=== PATIENT | female | born 1990 | race Caucasian/White ===

== ENCOUNTER 2016-12-08 02:24 | Emergency (ER) | payer OTHER ==
[2016-12-08] MEDS ORDERED: NS 0.9% 1000 ML* 1,000 ML IV ONE (02:46)
[2016-12-08] MEDS ORDERED: Ondansetron INJ* 2 MG/ML VIAL IV ONE (02:46)
[2016-12-08 03:14] LABS: Hematocrit 42 % (35-47); Hemoglobin 13.9 g/dl (12.0-16.0); Mean Corpuscular HGB Conc 34 g/dl (31-36); Mean Corpuscular Hemoglobin 28 pg (27-31); Mean Corpuscular Volume 84 fL (80-97); Mean Platelet Volume 8 um3 (7.4-10.4); Red Blood Count 4.97 10^6/ul (4.0-5.4); Red Cell Distribution Width 13 % (10.5-15); White Blood Count 15.3 10^3/ul (3.5-10.8)
[2016-12-08 03:19] LABS: Urine Bacteria 1+ (Absent); Urine Bilirubin Negative (Negative); Urine Glucose Negative (Negative); Urine Nitrite Negative (Negative)
[2016-12-08 03:32] LABS: ALT 11 U/L (7-52); AST 14 U/L (13-39); Albumin 4.2 g/dL (3.2-5.2); Alkaline Phosphatase 82 U/L (34-104); Anion Gap 9 mmol/L (2-11); Blood Urea Nitrogen 12 mg/dL (6-24); C Reactive Protein 20.84 mg/L (< 5.00); CO2 Carbon Dioxide 23 mmol/L (22-32); Calcium 9.2 mg/dL (8.6-10.3); Chloride 104 mmol/L (101-111); EGFR African American 118.3 (>60); Globulin 3.5 g/dL (2-4); Glucose 147 mg/dL (70-100); Lipase 26 U/L (11.0-82.0); Potassium 3.7 mmol/L (3.5-5.0); Sodium 136 mmol/L (133-145); Total Protein 7.7 g/dL (6.4-8.9)
[2016-12-08] MEDS ORDERED: Iohexol 300* (CONTRAST) 10 ML SDV IV ONE (06:04)
--- NOTE | 2016-12-08 06:13 | ED ---
laquita English Timothy, scribed for Markie Urrutia MD on 12/08/16 at 0243 . Abdominal Pain/Female - HPI Summary HPI Summary: Kiera Chanel is a 26 yo female presenting to [facility] with 4/10 lower abd and back pain since 0800 12/07/16 worsening through today, and worse when she lays down. She states her abd feels bloated, and she has sharp pains in her pelvic area. She states it feels like she need to have a BM, but has moved them several times today, and was voiding frequently yesterday. 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 Her Mx includes A0, bipolar disorder, depression, anxiety. - History of Current Complaint Chief Complaint: EDAbdPain Stated Complaint: ABD PAIN Time Seen by Provider: 12/08/16 02:43 Hx Obtained From: Patient Hx Last Menstrual Period: 04/17/16 ?: No Onset/Duration: Sudden Onset, Lasting Hours, Still Present, Worse Since - now Timing: Constant Severity Initially: Moderate Severity Currently: Moderate Pain Intensity: 4 Pain Scale Used: 0-10 Numeric Location: Suprapubic, Other - pelvis Radiates: No Character: Sharp - pelvic Aggravating Factor(s): Other: - laying down Alleviating Factor(s): Nothing Associated Signs and Symptoms: Positive: Back Pain, Other: - feeling of BM, bloating, voiding frequently Allergies/Adverse Reactions: Allergies Allergy/AdvReac Type Severity Reaction Status Date / Time No Known Allergies Allergy Verified 12/08/16 02:31 PMH/Surg Hx/FS Hx/Imm Hx Endocrine/Hematology History: Denies: Hx Diabetes, Hx Thyroid Disease Cardiovascular History: Denies: Hx Hypertension Respiratory History: Denies: Hx Asthma, Hx Chronic Obstructive Pulmonary Disease (COPD) GI History: Denies: Hx Ulcer History: Reports: Other Problems/Disorders - - vaginal delivery 06/11 Psychiatric History: Reports: Hx Anxiety - as reported by MOM's RN, Hx Depression - On Zoloft 50 mg. daily Comment Only: Hx Bipolar Disorder - per pt report - Surgical History Surgery Procedure, Year, and Place: - fx repair left arm Infectious Disease History: No Infectious Disease History: Denies: Hx Clostridium Difficile, Hx Hepatitis, Hx Human Immunodeficiency Virus (HIV), Hx of Known/Suspected MRSA, Hx Shingles, Hx Tuberculosis, Traveled Outside the [place] in Last 30 Days - Family History Known Family History: Positive: Cardiac Disease, Hypertension, Diabetes - Social History Alcohol Use: Rare Substance Use Type: Reports: None Substance Use Comment - Amount & Last Used: pt denies Smoking Status (MU): Never Smoked Tobacco Review of Systems Constitutional: Negative Eyes: Negative ENT: Negative Cardiovascular: Negative Respiratory: Negative Positive: Abdominal Pain, Nausea, Other - abd bloating, BM feeling, frequently voiding Genitourinary: Negative Musculoskeletal: Negative Skin: Negative Neurological: Negative Psychological: Normal All Other Systems Reviewed And Are Negative: Yes Physical Exam Triage Information Reviewed: Yes Vital Signs On Initial Exam: Initial Vitals Temp Pulse Resp BP Pulse Ox 98.4 F 121 15 151/71 98 12/08/16 02:27 12/08/16 02:27 12/08/16 02:27 12/08/16 02:27 12/08/16 02:27 Vital Signs Reviewed: Yes Appearance: Positive: Well-Appearing, No Pain Distress Skin: Positive: Warm Head/Face: Positive: Normal Head/Face Inspection Eyes: Positive: PRITESH ENT: Positive: Hearing grossly normal Neck: Positive: Supple Respiratory/Lung Sounds: Positive: Clear to Auscultation, Breath Sounds Present Cardiovascular: Positive: RRR Abdomen Description: Positive: Nontender, Soft Bowel Sounds: Positive: Present Musculoskeletal: Positive: Strength/ROM Intact Neurological: Positive: Alert, Oriented to Person Place, Time Psychiatric: Positive: Affect/Mood Appropriate Diagnostics - Vital Signs Vital Signs Temp Pulse Resp BP Pulse Ox 12/08/16 02:27 98.4 F 121 15 151/71 98 - Laboratory Lab Results: Lab Results 12/08/16 12/08/16 12/08/16 Range/Units 03:00 03:00 03:00 WBC 15.3 H (3.5-10.8) 10^3/ul RBC 4.97 (4.0-5.4) 10^6/ul Hgb 13.9 (12.0-16.0) g/dl Hct 42 (35-47) % MCV 84 (80-97) fL MCH 28 (27-31) pg MCHC 34 (31-36) g/dl RDW 13 (10.5-15) % Plt Count 317 (150-450) 10^3/ul MPV 8 (7.4-10.4) um3 Neut % (Auto) 87.7 H (38-83) % Lymph % (Auto) 7.9 L (25-47) % [place] % (Auto) 4.0 (1-9) % Eos % (Auto) 0.2 (0-6) % Baso % (Auto) 0.2 (0-2) % Absolute Neuts (auto) 13.5 H (1.5-7.7) 10^3/ul Absolute Lymphs (auto) 1.2 (1.0-4.8) 10^3/ul Absolute Monos (auto) 0.6 (0-0.8) 10^3/ul Absolute Eos (auto) 0 (0-0.6) 10^3/ul Absolute Basos (auto) 0 (0-0.2) 10^3/ul Absolute Nucleated RBC 0.01 10^3/ul Nucleated RBC % 0.1 Sodium 136 (133-145) mmol/L Potassium 3.7 (3.5-5.0) mmol/L Chloride 104 (101-111) mmol/L Carbon Dioxide 23 (22-32) mmol/L Anion Gap 9 (2-11) mmol/L BUN 12 (6-24) mg/dL Creatinine 0.75 (0.51-0.95) mg/dL Est GFR ( Amer) 118.3 (>60) Est GFR (Non-Af Amer) 92.0 (>60) BUN/Creatinine Ratio 16.0 (8-20) Glucose 147 H (70-100) mg/dL Calcium 9.2 (8.6-10.3) mg/dL Total Bilirubin 0.40 (0.2-1.0) mg/dL AST 14 (13-39) U/L ALT 11 (7-52) U/L Alkaline Phosphatase 82 (34-104) U/L C-Reactive Protein 20.84 H (< 5.00) mg/L Total Protein 7.7 (6.4-8.9) g/dL Albumin 4.2 (3.2-5.2) g/dL Globulin 3.5 (2-4) g/dL Albumin/Globulin Ratio 1.2 (1-3) Lipase 26 (11.0-82.0) U/L Beta HCG, Quant < 0.60 mIU/mL Urine Color Yellow Urine Appearance Cloudy Urine pH 6.0 (5-9) Ur Specific [place] 1.029 (1.010-1.030) Urine Protein 1+(30 mg/dl) H (Negative) Urine Ketones 1+ H (Negative) Urine Blood Negative (Negative) Urine Nitrate Negative (Negative) Urine Bilirubin Negative (Negative) Urine Urobilinogen Negative (Negative) Ur Leukocyte Esterase Trace H (Negative) Urine WBC (Auto) Trace(0-5/hpf) (Absent) Urine RBC (Auto) 1+(3-5/hpf) H (Absent) Ur Squamous Epith Cells Present H (Absent) Urine Bacteria 1+ H (Absent) Urine Glucose Negative (Negative) Result Diagrams: 12/08/16 03:00 12/08/16 03:00 Lab Statement: Any lab studies that have been ordered have been reviewed, and results considered in the medical decision making process. - CT A/P CT Interpretation: No Acute Changes - Impression: No evidence of acute pathology CT Interpretation Completed By: Radiologist - imaging gps navigation installer Re-Evaluation - Re-Evaluation First Eval Re-Evaluation Time: 06:37 Change: Improved Comment: Pt is informed of her imaging and lab study results, and is agreeable with the curent course of Tx. Abdominal Pain Fem Course/Dx - Course Course Of Treatment: Kiera Chanel is a 26 yo male presenting to [facility] with 4/10 lower abd and back pain since yesterday morning increasing through today, with a feeling of needing to have a BM and voiding frequently. In the ED she was given IV fluids and zofran for nausea control. Her CT A/P suggests no acute pathology. After clinical examination and review of her imaging and lab studies, she willbe discharged home with ??? - Diagnoses Differential Diagnosis: Positive: Other - abdominal pain Provider Diagnoses: Abdominal pain Discharge - Discharge Plan Condition: Stable Disposition: HOME Patient Education Materials: Acute Abdominal Pain (ED) Referrals: Derik Rodriguez NP [Primary Care Provider] - 2 Days Additional Instructions: Please follow up with your primary care physician regarding your visit to the emergency department today. Return to the emergency department with any new or recurring symptoms. The documentation as recorded by the laquita العلي Timothy accurately reflects the service I personally performed and the decisions made by me, Markie Urrutia MD.
[2016-12-08 07:02] VITALS: BP 124/78
--- NOTE | 2016-12-08 07:55 | RAD ---
INDICATION: Periumbilical pain. Constipation. COMPARISON: CT November 16, 2015 TECHNIQUE: Axial source images were obtained from the hemidiaphragms to the symphysis pubis following administration of oral and intravenous contrast. 121 mL Omnipaque 300 was utilized. Coronal and sagittal reconstructed images were acquired. Lung bases: The lung bases are clear. Liver: The liver is mildly enlarged with findings of mild hepatic steatosis. There are no masses. There is no ductal dilatation. Gallbladder: There are no calcified gallstones. There is no evidence of wall thickening or pericholecystic fluid. Spleen: The spleen is normal in size. There are no masses. Pancreas: There is no focal pancreatic mass or ductal dilatation. Adrenal glands: There is no evidence of adrenal mass. Kidneys: The kidneys are normal in size and position. There are prompt nephrograms and there is prompt excretion bilaterally. There are no renal parenchymal masses. There is no evidence of nephrolithiasis. Adenopathy: There is no evidence of adenopathy by size criteria. Fluid collections: There are no free or localized fluid collections. Vessels:There are no significant atherosclerotic changes involving the aorta. There is no focal aneurysm. The iliac vessels are normal in caliber. The IVC appears normal. GI tract: .There are no acute CT bowel findings. There is no obstruction. The stomach and small bowel appear normal. The terminal ileum is normal. The lower GI tract is remarkable for moderate stool in right colon. The appendix is is normal. There is no pericecal inflammatory change. Pelvic organs: The uterus and adnexa appear normal Bladder: There are no bladder masses. Abdominal and pelvic soft tissues: The extraperitoneal abdominal and pelvic soft tissues appear normal.. Osseous structures: There are no acute osseous findings. 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 Other: None IMPRESSION: NO ACUTE CT FINDINGS. NO MASS OR INFLAMMATORY CHANGES
== END 2016-12-08 06:59 | disposition home or self-care (01) ==
LOC: ED 02:24
DX: R10.30 Lower abdominal pain, unspecified (principal); M54.9 Dorsalgia, unspecified; F32.9 Major depressive disorder, single episode, unspecified; F31.9 Bipolar disorder, unspecified
CPT/HCPCS: 36415; 74177; 80053; 81003; 81015; 83690; 84702; 85025; 86140; 87086; 96360; 96374; 99282; Q9967

== ENCOUNTER → 2016-12-17 08:42 | Emergency (ER) | payer OTHER ==
[2016-12-17 08:48] VITALS: BP 138/79
== END | disposition left against medical advice (07) ==
LOC: ED 08:42
DX: K08.89 Other specified disorders of teeth and supporting structures (principal); Z53.21 Procedure and treatment not carried out due to patient leaving prior to being seen by health care provider

== ENCOUNTER 2017-08-14 22:30 | Emergency (ER) | payer OTHER ==
[2017-08-15 00:02] LABS: Hematocrit 41 % (35-47); Hemoglobin 13.6 g/dl (12.0-16.0); Mean Corpuscular HGB Conc 34 g/dl (31-36); Mean Corpuscular Hemoglobin 28 pg (27-31); Mean Corpuscular Volume 83 fL (80-97); Mean Platelet Volume 7 um3 (7.4-10.4); Red Blood Count 4.87 10^6/ul (4.0-5.4); Red Cell Distribution Width 13 % (10.5-15); White Blood Count 11.2 10^3/ul (3.5-10.8)
[2017-08-15 00:04] LABS: Urine Bacteria Absent (Absent); Urine Bilirubin Negative (Negative); Urine Glucose Negative (Negative); Urine Nitrite Negative (Negative)
[2017-08-15 00:18] LABS: ALT 13 U/L (7-52); AST 20 U/L (13-39); Albumin 4.1 g/dL (3.2-5.2); Alkaline Phosphatase 74 U/L (34-104); Anion Gap 7 mmol/L (2-11); BUN/Creatinine Ratio 12.5 (8-20); Blood Urea Nitrogen 10 mg/dL (6-24); CO2 Carbon Dioxide 24 mmol/L (22-32); Calcium 9.5 mg/dL (8.6-10.3); Chloride 101 mmol/L (101-111); EGFR African American 109.1 (>60); EGFR Non-African American 84.8 (>60); Globulin 3.4 g/dL (2-4); Glucose 105 mg/dL (70-100); Lipase 22 U/L (11.0-82.0); Potassium 3.9 mmol/L (3.5-5.0); Sodium 132 mmol/L (133-145); Total Protein 7.5 g/dL (6.4-8.9)
[2017-08-15] MEDS ORDERED: Ibuprofen TAB* 600 MG PO ONE (02:01)
[2017-08-15 03:09] VITALS: BP 95/40
--- NOTE | 2017-08-15 07:58 | RAD ---
CLINICAL HISTORY: Bilateral flank pain, dysuria and nausea and vomiting x5 days. COMPARISON: CT abdomen pelvis December 08, 2016 TECHNIQUE: Noncontrast CT examination of the abdomen and pelvis from the lung bases through the initial tuberosities. FINDINGS: VISUALIZED LUNG BASES: The visualized lung bases are grossly clear. There is no pleural effusion. ABDOMEN AND PELVIS: Evaluation of the solid organs and vasculature is limited without intravenous contrast. The liver, spleen, pancreas and adrenal glands are grossly normal in appearance. The gallbladder is normal. The kidneys are normal in appearance without focal mass, calcification or signs of hydronephrosis. The small and large bowel are not distended. The appendix is not confidently visualized but there are no focal inflammatory changes in the right lower quadrant characteristic of acute appendicitis. Mesenteric lymph nodes are noted but none are pathologically enlarged. The pelvic viscera is normal in appearance. The abdominal aorta and iliac arteries are normal in course and diameter. At the bilateral sacroiliac joints, more severe on the left than the right, there is sclerotic change of the articulating services with subchondral lucencies on the left. IMPRESSION: 1. No renal calculi or signs of obstructive uropathy. 2. Degenerative changes of the left sacroiliac joint are advanced for the patient's age. Sacroiliitis can be associated with inflammatory bowel disease though there are no signs of the latter on this CT examination. 3. Multiple top normal but not pathologically enlarged lymph nodes are seen in the peritoneal cavity which could be seen in setting of mesenteric adenitis or other infectious or inflammatory disease.
--- NOTE | 2017-08-16 20:19 | ED ---
Foster English Tiffany, scribchris for Karthik Norton on 08/14/17 at 2326 . Abdominal Pain/Female - HPI Summary HPI Summary: This patient is a 27 year old female presenting to [facility] with a chief complaint of bilateral flank pain since a week ago. The patient rates the pain 5/10 in severity. Symptoms aggravated by nothing. Symptoms alleviated by Tylenol. Patient reports nausea, vomiting, dysuria, fever and back pain. - History of Current Complaint Chief Complaint: EDFlankPain Stated Complaint: HEADACHE/FLANK PAIN/NAUSEA Time Seen by Provider: 08/14/17 23:02 Hx Obtained From: Patient Hx Last Menstrual Period: 04/17/16 Onset/Duration: Lasting Weeks - 1 week, Still Present Timing: Constant Severity Currently: Moderate Pain Intensity: 5 Pain Scale Used: 0-10 Numeric Location: Flank - Bilateral Associated Signs and Symptoms: Positive: Fever, Back Pain, Urinary Symptoms - dysuria, Nausea, Vomiting Allergies/Adverse Reactions: Allergies Allergy/AdvReac Type Severity Reaction Status Date / Time No Known Allergies Allergy Verified 08/14/17 22:45 PMH/Surg Hx/FS Hx/Imm Hx Previously Healthy: No Endocrine/Hematology History: Denies: Hx Diabetes, Hx Thyroid Disease Cardiovascular History: Denies: Hx Hypertension Respiratory History: Denies: Hx Asthma, Hx Chronic Obstructive Pulmonary Disease (COPD) GI History: Denies: Hx Ulcer History: Reports: Other Problems/Disorders - - vaginal delivery 06/11 Denies: Hx Dialysis, Hx Renal Disease Psychiatric History: Reports: Hx Anxiety - as reported by MOM's RN, Hx Depression - On Zoloft 50 mg. daily Comment Only: Hx Bipolar Disorder - per pt report - Surgical History Surgery Procedure, Year, and Place: 07- fx repair left arm Infectious Disease History: No Infectious Disease History: Denies: Hx Clostridium Difficile, Hx Hepatitis, Hx Human Immunodeficiency Virus (HIV), Hx of Known/Suspected MRSA, Hx Shingles, Hx Tuberculosis, Traveled Outside the [place] in Last 30 Days - Family History Known Family History: Positive: Cardiac Disease, Hypertension, Diabetes - Social History Alcohol Use: Rare Hx Substance Use: Yes Substance Use Type: Reports: Marijuana Substance Use Comment - Amount & Last Used: pt denies Hx Tobacco Use: No Smoking Status (MU): Never Smoked Tobacco Review of Systems Positive: Fever Positive: Vomiting, Nausea, Other - Bilateral flank pain Positive: dysuria Positive: Other - Back pain All Other Systems Reviewed And Are Negative: Yes Physical Exam - Summary Physical Exam Summary: Appearance: Well appearing, no pain distress Skin: warm, dry, reflects adequate perfusion Head/face: normal Eyes: EOMI, PRITESH ENT: normal Neck: supple, non-tender Respiratory: CTA, breath sounds present Cardiovascular: RRR, pulses symmetrical Abdomen: tenderness in LLQ Bowel: present Musculoskeletal: normal, strength/ROM intact Neuro: normal, sensory motor intact, A&Ox3 Triage Information Reviewed: Yes Vital Signs On Initial Exam: Initial Vitals Temp Pulse Resp BP Pulse Ox 98.4 F 117 16 125/70 97 08/14/17 22:40 08/14/17 22:40 08/14/17 22:40 08/14/17 22:40 08/14/17 22:40 Vital Signs Reviewed: Yes - [place] Coma Scale Coma Scale Total: 15 Diagnostics - Vital Signs Vital Signs Temp Pulse Resp BP Pulse Ox 08/14/17 23:11 116 97 08/14/17 23:09 127/69 08/14/17 22:40 98.4 F 117 16 125/70 97 - Laboratory Lab Results: Lab Results 08/14/17 08/14/17 08/14/17 Range/Units 23:45 23:50 23:50 WBC 11.2 H (3.5-10.8) 10^3/ul RBC 4.87 (4.0-5.4) 10^6/ul Hgb 13.6 (12.0-16.0) g/dl Hct 41 (35-47) % MCV 83 (80-97) fL MCH 28 (27-31) pg MCHC 34 (31-36) g/dl RDW 13 (10.5-15) % Plt Count 319 (150-450) 10^3/ul MPV 7 L (7.4-10.4) um3 Neut % (Auto) 84.6 H (38-83) % Lymph % (Auto) 8.6 L (25-47) % [place] % (Auto) 6.4 (1-9) % Eos % (Auto) 0.1 (0-6) % Baso % (Auto) 0.3 (0-2) % Absolute Neuts (auto) 9.5 H (1.5-7.7) 10^3/ul Absolute Lymphs (auto) 1.0 (1.0-4.8) 10^3/ul Absolute Monos (auto) 0.7 (0-0.8) 10^3/ul Absolute Eos (auto) 0 (0-0.6) 10^3/ul Absolute Basos (auto) 0 (0-0.2) 10^3/ul Absolute Nucleated RBC 0.01 10^3/ul Nucleated RBC % 0.1 INR (Anticoag Therapy) 0.98 (0.77-1.02) APTT 27.7 (26.0-36.3) seconds Sodium (133-145) mmol/L Potassium (3.5-5.0) mmol/L Chloride (101-111) mmol/L Carbon Dioxide (22-32) mmol/L Anion Gap (2-11) mmol/L BUN (6-24) mg/dL Creatinine (0.51-0.95) mg/dL Est GFR ( Amer) (>60) Est GFR (Non-Af Amer) (>60) BUN/Creatinine Ratio (8-20) Glucose (70-100) mg/dL Calcium (8.6-10.3) mg/dL Total Bilirubin (0.2-1.0) mg/dL AST (13-39) U/L ALT (7-52) U/L Alkaline Phosphatase (34-104) U/L Total Protein (6.4-8.9) g/dL Albumin (3.2-5.2) g/dL Globulin (2-4) g/dL Albumin/Globulin Ratio (1-3) Lipase (11.0-82.0) U/L Beta HCG, Quant mIU/mL Urine Color Yellow Urine Appearance Clear Urine pH 6.0 (5-9) Ur Specific [place] 1.021 (1.010-1.030) Urine Protein Negative (Negative) Urine Ketones Negative (Negative) Urine Blood 1+ H (Negative) Urine Nitrate Negative (Negative) Urine Bilirubin Negative (Negative) Urine Urobilinogen Negative (Negative) Ur Leukocyte Esterase Negative (Negative) Urine WBC (Auto) Trace(0-5/hpf) (Absent) Urine RBC (Auto) 2+(6-10/hpf) H (Absent) Ur Squamous Epith Cells Present H (Absent) Urine Bacteria Absent (Absent) Urine Glucose Negative (Negative) 08/14/17 Range/Units 23:50 WBC (3.5-10.8) 10^3/ul RBC (4.0-5.4) 10^6/ul Hgb (12.0-16.0) g/dl Hct (35-47) % MCV (80-97) fL MCH (27-31) pg MCHC (31-36) g/dl RDW (10.5-15) % Plt Count (150-450) 10^3/ul MPV (7.4-10.4) um3 Neut % (Auto) (38-83) % Lymph % (Auto) (25-47) % [place] % (Auto) (1-9) % Eos % (Auto) (0-6) % Baso % (Auto) (0-2) % Absolute Neuts (auto) (1.5-7.7) 10^3/ul Absolute Lymphs (auto) (1.0-4.8) 10^3/ul Absolute Monos (auto) (0-0.8) 10^3/ul Absolute Eos (auto) (0-0.6) 10^3/ul Absolute Basos (auto) (0-0.2) 10^3/ul Absolute Nucleated RBC 10^3/ul Nucleated RBC % INR (Anticoag Therapy) (0.77-1.02) APTT (26.0-36.3) seconds Sodium 132 L (133-145) mmol/L Potassium 3.9 (3.5-5.0) mmol/L Chloride 101 (101-111) mmol/L Carbon Dioxide 24 (22-32) mmol/L Anion Gap 7 (2-11) mmol/L BUN 10 (6-24) mg/dL Creatinine 0.80 (0.51-0.95) mg/dL Est GFR ( Amer) 109.1 (>60) Est GFR (Non-Af Amer) 84.8 (>60) BUN/Creatinine Ratio 12.5 (8-20) Glucose 105 H (70-100) mg/dL Calcium 9.5 (8.6-10.3) mg/dL Total Bilirubin 0.40 (0.2-1.0) mg/dL AST 20 (13-39) U/L ALT 13 (7-52) U/L Alkaline Phosphatase 74 (34-104) U/L Total Protein 7.5 (6.4-8.9) g/dL Albumin 4.1 (3.2-5.2) g/dL Globulin 3.4 (2-4) g/dL Albumin/Globulin Ratio 1.2 (1-3) Lipase 22 (11.0-82.0) U/L Beta HCG, Quant < 0.60 mIU/mL Urine Color Urine Appearance Urine pH (5-9) Ur Specific [place] (1.010-1.030) Urine Protein (Negative) Urine Ketones (Negative) Urine Blood (Negative) Urine Nitrate (Negative) Urine Bilirubin (Negative) Urine Urobilinogen (Negative) Ur Leukocyte Esterase (Negative) Urine WBC (Auto) (Absent) Urine RBC (Auto) (Absent) Ur Squamous Epith Cells (Absent) Urine Bacteria (Absent) Urine Glucose (Negative) Result Diagrams: 08/14/17 23:50 08/14/17 23:50 Lab Statement: Any lab studies that have been ordered have been reviewed, and results considered in the medical decision making process. - CT Abd/Pel CT Interpretation Completed By: Radiologist - Sacroiliitis. ED physician has reviewed this radiology report. Abdominal Pain Fem Course/Dx - Course Course Of Treatment: This patient is a 27 year old female presenting to [facility] with a chief complaint of bilateral flank pain since a week ago. CT Abd/Pel reveals, per radiologist, Sacroiliitis. Bloodwork/UA obtained. In the ED course the patient was given Motrin. Patient will be discharged with prescription for Naprosyn and follow up from PCP. The patient is agreeable with this plan. - Diagnoses Differential Diagnosis: Positive: Appendicitis, Diverticulitis, Ovarian Cyst, Pancreatitis, Urinary Tract Infection Provider Diagnoses: Nonspecific abdominal pain Discharge - Discharge Plan Condition: Stable Disposition: HOME Prescriptions: Naproxen [Naprosyn 500 mg] 500 mg PO TID #20 tab Patient Education Materials: Abdominal Pain (ED) Referrals: Jasmeet Li MD [Primary Care Provider] - 3 Days Additional Instructions: Follow up with PCP in 3 days. Return to ED if current symptoms worsen, or new symptoms develop. The documentation as recorded by the Foster العلي Tiffany accurately reflects the service I personally performed and the decisions made by Cierra hidalgo Emmanuel.
== END 2017-08-15 02:35 | disposition home or self-care (01) ==
LOC: ED 22:30
DX: R10.9 Unspecified abdominal pain (principal); R50.9 Fever, unspecified; M54.9 Dorsalgia, unspecified; R30.0 Dysuria; R11.2 Nausea with vomiting, unspecified
CPT/HCPCS: 36415; 74176; 80053; 81003; 81015; 83690; 84702; 85025; 85610; 85730; 99283

== ENCOUNTER → 2018-10-20 14:30 | Emergency (ER) | payer OTHER ==
[~2018-10-20 14:30] MED LIST: Amoxicillin/Clavulanate TAB* 875 MG PO ONE; predniSONE TAB* 20 MG PO ONE
--- NOTE | 2018-10-20 16:04 | ED ---
Dizziness - HPI Summary HPI Summary: This patient is a 28 year old F presenting to [facility] with a chief complaint of dizziness since 2 days ago. The patient is not currently dizzy while in the ED. Patient reports seeing spots, pressure WOODS, pressure in her face, infected tooth, neck pain, and decreased ROM in neck. Patient denies fever, cough, sore throat, CP, or abdominal pain. The patient states that it feels like someone is pushing her body back. The patient lost 36 pounds in the last four months. The patient states that she is not . PMHX none. RX none. - History Of Current Complaint Chief Complaint: EDDizziness Stated Complaint: DIZZINESS Time Seen by Provider: 10/20/18 15:17 Hx Obtained From: Patient Onset/Duration: Resolved Character: Dizzy Associated Signs And Symptoms: Positive: Visual Changes, Change In Diet. Negative: Chest Pain, Fever - Allergies/Home Medications Allergies/Adverse Reactions: Allergies Allergy/AdvReac Type Severity Reaction Status Date / Time No Known Allergies Allergy Verified 10/20/18 14:49 PMH/Surg Hx/FS Hx/Imm Hx Endocrine/Hematology History: Denies: Hx Diabetes, Hx Thyroid Disease Cardiovascular History: Denies: Hx Hypertension Respiratory History: Denies: Hx Asthma, Hx Chronic Obstructive Pulmonary Disease (COPD) GI History: Denies: Hx Ulcer History: Reports: Other Problems/Disorders - - vaginal delivery 06/11 Denies: Hx Dialysis, Hx Renal Disease Psychiatric History: Reports: Hx Anxiety - as reported by MOM's RN, Hx Depression - On Zoloft 50 mg. daily Comment Only: Hx Bipolar Disorder - per pt report - Surgical History Surgery Procedure, Year, and Place: - fx repair left arm Infectious Disease History: No Infectious Disease History: Denies: Hx Clostridium Difficile, Hx Hepatitis, Hx Human Immunodeficiency Virus (HIV), Hx of Known/Suspected MRSA, Hx Shingles, Hx Tuberculosis, Traveled Outside the [place] in Last 30 Days - Family History Known Family History: Positive: Cardiac Disease, Hypertension, Diabetes - Social History Alcohol Use: Rare Hx Substance Use: Yes Substance Use Type: Reports: Marijuana Substance Use Comment - Amount & Last Used: pt denies Hx Tobacco Use: No Smoking Status (MU): Never Smoked Tobacco Review of Systems Negative: Fever Positive: Other - seeing spots, infected tooth. Negative: Sore Throat Negative: Chest Pain Negative: Cough Negative: Abdominal Pain Positive: Myalgia - neck pain, Decreased ROM - neck Neurological: Other - dizziness Positive: Headache - pressure All Other Systems Reviewed And Are Negative: Yes Physical Exam - Summary Physical Exam Summary: Appearance: Well appearing, no pain distress Skin: warm, dry, reflects adequate perfusion Head/face: normal Eyes: EOMI, PRITESH ENT: normal Neck: supple, non-tender Respiratory: CTA, breath sounds present Cardiovascular: RRR, pulses symmetrical Abdomen: non-tender, soft Musculoskeletal: normal, strength/ROM intact Neuro: normal, sensory motor intact, A&Ox3 GCS: 15 Triage Information Reviewed: Yes Vital Signs On Initial Exam: Initial Vitals Temp Pulse Resp BP Pulse Ox 98.0 F 75 16 132/80 100 10/20/18 14:44 10/20/18 14:44 10/20/18 14:44 10/20/18 14:44 10/20/18 14:44 Vital Signs Reviewed: Yes Diagnostics - Vital Signs Vital Signs Temp Pulse Resp BP Pulse Ox 10/20/18 14:44 98.0 F 75 16 132/80 100 - Laboratory Result Diagrams: 10/20/18 17:00 10/20/18 17:00 Lab Statement: Any lab studies that have been ordered have been reviewed, and results considered in the medical decision making process. - Radiology CXR Radiology Interpretation Completed By: Radiologist Summary of Radiographic Findings: no active cardiopulmonary disease. ED physician has reviewed this radiology report. - CT Brain CT Interpretation Completed By: Radiologist Summary of CT Findings: NO ACUTE INTRACRANIAL PATHOLOGY. ED physician has reviewed this report. Sinuses CT CT Interpretation Completed By: Radiologist Summary of CT Findings: MILD SINUS MUCOSAL INFLAMMATORY DISEASE, WITH AN AIR- FLUID LEVEL IN THE LEFT FRONTAL. SINUS. IN THE CORRECT CLINICAL SETTING, THIS MAY REPRESENT ACUTE SINUSITIS. ED physician has reviewed this radiology report. - EKG 15:35 Cardiac Rate: NL - 65 bpm EKG Rhythm: Sinus Rhythm Summary of EKG Findings: No acute changes Dizzy Course/Dx - Course Course Of Treatment: This patient is a 28 year old F presenting to [facility] with a chief complaint of dizziness since 2 days ago. The patient is not currently dizzy while in the ED. Patient reports seeing spots, pressure WOODS, pressure in her face, infected tooth, neck pain, and decreased ROM in neck. Patient denies fever, cough, sore throat, CP, or abdominal pain. An EKG reveals NSR 65 bpm, no acute changes. CXR reveals, per radiologist, no active cardiopulmonary disease. Brain CT reveals, per radiologist, NO ACUTE INTRACRANIAL PATHOLOGY. Sinuses CT reveals, per radiologist, MILD SINUS MUCOSAL INFLAMMATORY DISEASE, WITH AN AIR-FLUID LEVEL IN THE LEFT FRONTAL. SINUS. IN THE CORRECT CLINICAL SETTING, THIS MAY REPRESENT ACUTE SINUSITIS. ED physician has reviewed this radiology report. Blood work/UA obtained. In the ED course the patient was given Amoxicillin and Prednisone. Patient will be discharged with prescription for Amoxicillin and Prednisone and follow up from Dr. Li. The patient is agreeable with this plan. - Diagnoses Differential Diagnosis/HQI/PQRI: Dysrhythmia, Labyrinthitis, Other - sinusitis Provider Diagnoses: Sinusitis Discharge - Sign-Out/Discharge Documenting (check all that apply): Patient Departure - discharge Patient Received Moderate/Deep Sedation with Procedure: No - Discharge Plan Condition: Stable Disposition: HOME Prescriptions: Amoxicillin/Clavulanate TAB* [Augmentin TAB 875*] 875 mg PO BID #20 tab predniSONE TAB* [Deltasone 20 MG TAB*] 40 mg PO DAILY #5 tab predniSONE TAB* [Deltasone 20 MG TAB*] 40 mg PO DAILY #5 tab Patient Education Materials: Sinusitis (ED) Referrals: Jasmeet Li MD [Primary Care Provider] - 3 Days Additional Instructions: Please follow up with Dr. Obrien within 3 days. - Billing Disposition and Condition Condition: STABLE Disposition: Home - Attestation Statements Document Initiated by Hillary: Yes Documenting Scribe: David Lamb Provider For Whom Hillary is Documenting (Include Credential): Karthik Norton MD Scribe Attestation: David English, scribed for Karthik Norton MD on 10/20/18 at 1815. Scribe Documentation Reviewed: Yes Provider Attestation: The documentation as recorded by the David العلي accurately reflects the service I personally performed and the decisions made by , Karthik Norton MD Status of Scribe Document: Viewed
[2018-10-20 16:17] LABS: Influenza A Molecular NEGATIVE (Negative); Influenza B Molecular NEGATIVE (Negative)
[2018-10-20 17:08] LABS: ABS Basophils 0 10^3/ul (0-0.2); ABS Eosinophils 0.2 10^3/ul (0-0.6); ABS Monocytes 0.6 10^3/ul (0-0.8); ABS Neutrophils 6.7 10^3/ul (1.5-7.7); ABS Nucleated RBC 0 10^3/ul; Eosinophil % 2.3 %; Hematocrit 42 % (35-47); Hemoglobin 14.3 g/dl (12.0-16.0); Mean Corpuscular HGB Conc 34 g/dl (31-36); Mean Corpuscular Hemoglobin 29 pg (27-31); Mean Corpuscular Volume 84 fL (80-97); Mean Platelet Volume 7.5 fL (7.4-10.4); Nucleated Red Blood Cells % 0.1; Platelet Count 280 10^3/ul (150-450); Red Blood Count 4.99 10^6/ul (4.00-5.40); Red Cell Distribution Width 14 % (10.5-15); White Blood Count 9.6 10^3/ul (3.5-10.8)
[2018-10-20 17:18] LABS: Activated Partial Thrombo Time 32.1 seconds (26.0-36.3); INR 0.96 (0.77-1.02)
[2018-10-20 17:25] LABS: ALT 12 U/L (7-52); AST 16 U/L (13-39); Albumin 4.7 g/dL (3.2-5.2); Albumin/Globulin Ratio 1.7 (1-3); Alkaline Phosphatase 80 U/L (34-104); Anion Gap 6 mmol/L (2-11); BUN/Creatinine Ratio 13.7 (8-20); Blood Urea Nitrogen 10 mg/dL (6-24); CO2 Carbon Dioxide 27 mmol/L (22-32); Calcium 10.1 mg/dL (8.6-10.3); Chloride 105 mmol/L (101-111); EGFR African American 113.3 (>60); EGFR Non-African American 93.6 (>60); Globulin 2.8 g/dL (2-4); Glucose 114 mg/dL (70-100); Potassium 4.4 mmol/L (3.5-5.0); Sodium 138 mmol/L (135-145); Total Protein 7.5 g/dL (6.4-8.9)
[2018-10-20 17:32] LABS: HCG Pregnancy < 0.60 mIU/mL
[2018-10-20 18:01] LABS: Urine Appearance Clear; Urine Bacteria Absent (Absent); Urine Bilirubin Negative (Negative); Urine Blood 2+ (Negative); Urine Color Straw; Urine Glucose Negative (Negative); Urine Ketones Negative (Negative); Urine Nitrite Negative (Negative); Urine Protein Negative (Negative); Urine Red Blood Cell Trace(0-2/hpf) (Absent); Urine Specific Gravity 1.003 (1.010-1.030); Urine Squamous Epithelial Cell Present (Absent); Urine Urobilinogen Negative (Negative); Urine White Blood Cell Absent (Absent)
[2018-10-20 18:12] VITALS: BP 130/63
== END | disposition home or self-care (01) ==
LOC: ED 14:30
DX: J32.9 Chronic sinusitis, unspecified (principal); F32.9 Major depressive disorder, single episode, unspecified; F41.9 Anxiety disorder, unspecified
CPT/HCPCS: 36415; 70450; 70486; 71046; 80053; 81003; 81015; 83880; 84484; 84702; 85025; 85610; 85730; 93005; 99284; A9270-GY; J7512

== ENCOUNTER 2019-07-22 12:55 | Emergency (ER) | payer BC, OTHER ==
[2019-07-22 13:28] VITALS: BP 121/71
--- NOTE | 2019-07-22 13:56 | UC ---
FLU HPI - HPI Summary HPI Summary: 29-year-old female presents with 3 day history of sore throat, right ear pain, nasal congestion, postnasal drip, and occasional productive cough. States she had fever of 103 F on the first day of symptoms has been afebrile since that time. States her daughter is in daycare and has had some URI symptoms recently. Denies dysphagia, chest pain, shortness of breath, abdominal pain, nausea, vomiting, or diarrhea. - History of Current Complaint Chief Complaint: UCRespiratory Stated Complaint: THROAT,FEVER,COUGH, LEFT EAR Time Seen by Provider: 07/22/19 13:09 Hx Obtained From: Patient Hx Last Menstrual Period: 07/18/19 Pain Intensity: 0 - Allergy/Home Medications Allergies/Adverse Reactions: Allergies Allergy/AdvReac Type Severity Reaction Status Date / Time No Known Allergies Allergy Verified 07/22/19 13:28 Home Medications: Home Medications NK [No Home Medications Reported] 07/22/19 [History Confirmed 07/22/19] PMH/Surg Hx/FS Hx/Imm Hx Previously Healthy: Yes - Denies significant PMH - Surgical History Surgical History: Yes Surgery Procedure, Year, and Place: 07- fx repair left arm - Family History Known Family History: Positive: Cardiac Disease, Hypertension, Diabetes - Social History Occupation: Employed Full-time Lives: With Family Alcohol Use: Rare Substance Use Type: Marijuana Substance Use Comment - Amount & Last Used: pt denies Smoking Status (MU): Never Smoked Tobacco - Immunization History Most Recent Influenza Vaccination: 05/12/15 Most Recent Tetanus Shot: 02/23/15 Most Recent Pneumonia Vaccination: never Review of Systems All Other Systems Reviewed And Are Negative: Yes Constitutional: Positive: Fever, Chills, Fatigue Skin: Positive: Negative Eyes: Negative: Drainage, Eye Redness ENT: Positive: Sore Throat, Ear Ache, Nasal Discharge, Sinus Congestion. Negative: Sinus Pain/Tenderness Respiratory: Positive: Cough. Negative: Shortness Of Breath Cardiovascular: Negative: Palpitations, Chest Pain Gastrointestinal: Negative: Abdominal Pain, Vomiting, Diarrhea, Nausea Genitourinary: Positive: Negative Musculoskeletal: Positive: Negative Neurological: Positive: Negative Is Patient Immunocompromised?: No Physical Exam - Summary Physical Exam Summary: GENERAL APPEARANCE: Well developed, well nourished, alert and cooperative, and appears to be in no acute distress. EYES: Conjunctiva clear. No drainage. EARS: External auditory canals and tympanic membranes clear, hearing grossly intact. NOSE: Mild nasal congestion. No nasal discharge. THROAT: Pharyngeal erythema with post-nasal drip. No tonsilar inflammation, swelling, exudate, or lesions. Uvula midline. NECK: Neck supple, non-tender without lymphadenopathy. CARDIAC: Normal S1 and S2. No S3, S4 or murmurs. Rhythm is regular. There is no peripheral edema, cyanosis or pallor. Extremities are warm and well perfused. Capillary refill is less than 2 seconds. Peripheral pulses intact. LUNGS: Clear to auscultation without rales, rhonchi, wheezing or diminished breath sounds. ABDOMEN: Positive bowel sounds. Soft, nondistended, nontender. No guarding or rebound. No masses or hepatosplenomegally. MUSKULOSKELETAL: ROM intact to all extremities. No joint erythema or tenderness. Normal muscular development. Normal gait. SKIN: Skin normal color, texture and turgor with no lesions or eruptions. Triage Information Reviewed: Yes Vital Signs: Initial Vital Signs Temp 98.2 F 07/22/19 13:25 Pulse 79 07/22/19 13:25 Resp 18 07/22/19 13:25 BP 121/71 07/22/19 13:25 Pulse Ox 100 07/22/19 13:25 Vital Signs Reviewed: Yes Flu Course/Dx - Course Course Of Treatment: 29-year-old female presents with 3 day history of sore throat, right ear pain, nasal congestion, postnasal drip, and occasional productive cough. States she had fever of 103 F on the first day of symptoms has been afebrile since that time. States her daughter is in daycare and has had some URI symptoms recently. Denies dysphagia, chest pain, shortness of breath, abdominal pain, nausea, vomiting, or diarrhea. Afebrile. Vital signs stable. Patient had mild nasal congestion, pharyngeal erythema with postnasal drip, no tonsillar swelling or exudate, no cervical lymphadenopathy, clear bilateral breath sounds , and otherwise unremarkable exam. Rapid strep test was negative. Reviewed results with the patient. Recommending symptomatic treatment for viral upper respiratory infection. She is to follow-up with her primary care provider in 5- 7 days if symptoms are not improving. Anticipatory guidance and warning symptoms were reviewed with the patient. Verbalizes understanding and agrees with plan of care. - Differential Dx/Diagnosis Differential Diagnosis/HQI/PQRI: Bronchitis, Influenza, Pneumonia, Upper Respiratory Infection, Other - Pharyngitis, peritonsilar abscess Provider Diagnosis: Viral URI Discharge ED - Sign-Out/Discharge Documenting (check all that apply): Patient Departure All imaging exams completed and their final reports reviewed: No Studies - Discharge Plan Condition: Stable Disposition: HOME Patient Education Materials: Upper Respiratory Infection (ED) Referrals: No Primary Care Phys,NOPCP [Primary Care Provider] - Additional Instructions: The rapid strep test performed in the clinic today was negative. Your history and exam are consistent with a viral upper respiratory infection. Viral infections do not respond to antibiotics and are limited to the treatment of symptoms. Viral infections typically run their course in 7-10 days. Drink plenty of fluids to avoid dehydration especially if you are running any fever. Use a saline rinse kit such as Neti Pot or NeilMed at least twice a day to help thin secretions and promote drainage of the sinuses. Use fluticasone (Flonase) nasal spray 2 sprays each nostril once daily. Take over the counter acetaminophen (Tylenol) or ibuprofen (Advil, Motrin) according to directions as needed for pain or fever. Use salt water gargles several times a day if you have a sore throat. You may also use Chloraseptic spray or Cepacol lonzenges according to directions which contain a numbing medication and can provide some temporary relief from your sore throat. Follow up with your primary care provider in 5-7 days if symptoms persist. Seek immediate medical attention in the emergency room if you have fever greater than 100.5 F despite taking acetaminophen or ibuprofen, have chest pain , difficulty breathing, are unable to swallow, or have any worsening of symptoms. - Billing Disposition and Condition Condition: STABLE Disposition: Home
== END 2019-07-22 14:18 | disposition home or self-care (01) ==
LOC: UCEAST 12:55
DX: J06.9 Acute upper respiratory infection, unspecified (principal); J02.9 Acute pharyngitis, unspecified; H92.01 Otalgia, right ear
CPT/HCPCS: 87651; 99211; G0463